=== PATIENT | female | born 1960 | race Caucasian/White ===

== ENCOUNTER 2020-10-12 21:44 | Emergency (ER) | payer SELFPAY ==
[~2020-10-12 21:44] MED LIST: ELAVIL50 MG PO; KEFLEX250 MG PO; NYSTATIN 30GM C30 GM TOP; PREDNISONE 10MG10 MG PO; TRAZODONE 100M100 MG PO; TRELEGY ELLIPT1 EACH PO; VENTOLIN HFA IN18 GM INH
[2020-10-12 22:03] LABS: BASOPHIL 0.4 % (0-2); EOSINOPHIL 1.4 % (0-5); HCT 42.4 % (37.0-47.0); HGB 14.3 g/dl (12.5-16.0); LYMPHOCYTE 37.7 % (15-48); MCH 29.9 pg (25.0-31.0); MCHC 33.7 g/dL (32.0-36.0); MCV 88.5 fL (78.0-100.0); MONOCYTE 7.1 % (0-12); MPV 9.4 fL (6.0-9.5); NRBC 0; PLT 303 K/uL (150-400); RBC 4.79 M/uL (4.20-5.40); RDW 13.2 % (11.5-14.0); WBC 12.3 K/uL (4.0-10.5)
[2020-10-12 22:15] LABS: INR 1.13 (0.9-1.2); PROTHROMBIN TIME 13.8 SECONDS (11.4-13.6)
[2020-10-12 22:22] LABS: IRON % SATURATION 27.3 %SAT (20-50)
[2020-10-12 22:30] LABS: D-DIMER 6.09 ug/mLFEU (0.00-0.41)
[2020-10-12 22:33] LABS: ALBUMIN 3.6 g/dL (3.4-5.0); BILIRUBIN - TOTAL 0.4 mg/dL (0.2-1.0); BUN/CREAT RATIO (CALC) 21.2 RATIO; CREATININE 0.8 mg/dL (0.51-0.95); GLOBULIN (CALCULATION) 4.3 g/dL; MAGNESIUM 2.3 mg/dL (1.8-2.4); TOTAL PROTEIN 7.9 g/dL (6.4-8.2)
[2020-10-12 22:46] LABS: LACTIC ACID 2.3 mmol/L (0.4-1.9)
== END 2020-10-13 02:22 | disposition other institution (70) ==
LOC: FER 21:44
PROVIDERS: Emergency Medicine
DX: I26.99 Other pulmonary embolism without acute cor pulmonale (principal); J96.01 Acute respiratory failure with hypoxia; I51.89 Other ill-defined heart diseases; R22.42 Localized swelling, mass and lump, left lower limb; J44.9 Chronic obstructive pulmonary disease, unspecified; F17.210 Nicotine dependence, cigarettes, uncomplicated; Z20.822 Contact with and (suspected) exposure to COVID-19
CPT/HCPCS: 36415; 36600; 71275; 80053; 82728; 82803; 83540; 83550; 83605; 83615; 83735; 83880; 84145; 84484; 85025; 85379; 85610; 85730; 93005; J1650; J7030; Q9967; U0002

== ENCOUNTER 2021-08-04 04:55 | Emergency (ER) | payer SELFPAY ==
[2021-08-04 06:27] LABS: BILIRUBIN NEGATIVE (NEGATIVE); BLOOD NEGATIVE Ery/uL (NEGATIVE); CLARITY CLEAR (CLEAR); COLOR YELLOW (YELLOW); GLUCOSE (U) NORMAL (NORMAL); LEUKOCYTES NEGATIVE Leu/uL (NEGATIVE); NITRITE NEGATIVE (NEGATIVE); PROTEIN NEGATIVE (NEGATIVE); UROBILINOGEN 0.2 mg/dL (0.2-1.0)
[2021-08-04 06:42] LABS: BASOPHIL 0.7 % (0-2); EOSINOPHIL 1.6 % (0-5); HCT 39.8 % (37.0-47.0); HGB 13.3 g/dl (12.5-16.0); LYMPHOCYTE 28.1 % (15-48); MCH 29.6 pg (25.0-31.0); MCHC 33.4 g/dL (32.0-36.0); MCV 88.6 fL (78.0-100.0); MONOCYTE 7.3 % (0-12); MPV 9.1 fL (6.0-9.5); NEUTROPHIL 61.8 % (41-80); NRBC 0; PLT 285 K/uL (150-400); RBC 4.49 M/uL (4.20-5.40); RDW 13.5 % (11.5-14.0); WBC 11.9 K/uL (4.0-10.5)
[2021-08-04 06:48] LABS: CORONAVIRUS 2019 SARS-COV-2 NEGATIVE (NEGATIVE); INFLUENZA A NAA NEGATIVE (NEGATIVE)
[2021-08-04 07:01] LABS: BUN/CREAT RATIO (CALC) 20.3 RATIO; CREATININE 0.79 mg/dL (0.51-0.95); POTASSIUM 4.4 mmol/L (3.5-5.1)
[2021-08-04] MEDS ORDERED: METRONIDAZOLE500 MG PO (11:03)
[2021-08-04] MEDS ORDERED: CIPRO500 MG PO (11:03)
[2021-08-04] MEDS ORDERED: FIORICET1 EACH PO (11:03)
== END 2021-08-04 11:40 | disposition home or self-care (01) ==
LOC: FER 04:55
PROVIDERS: Internal Medicine
DX: K57.32 Diverticulitis of large intestine without perforation or abscess without bleeding (principal); G43.909 Migraine, unspecified, not intractable, without status migrainosus; F17.210 Nicotine dependence, cigarettes, uncomplicated; Z20.822 Contact with and (suspected) exposure to COVID-19; Z99.81 Dependence on supplemental oxygen
CPT/HCPCS: 36415; 70450; 71260; 80048; 81003; 84145; 85025; 96372; J1170; J3030; Q9967; U0002

== ENCOUNTER 2021-08-20 09:45 | Emergency (ER) | payer SELFPAY ==
[~2021-08-20 09:45] MED LIST changes: +CIPRO500 MG PO; +FIORICET1 EACH PO; +METRONIDAZOLE500 MG PO
[2021-08-20 10:12] LABS: BASOPHIL 0.6 % (0-2); EOSINOPHIL 2.2 % (0-5); HGB 13.6 g/dl (12.5-16.0); LYMPHOCYTE 35.4 % (15-48); MCH 29.7 pg (25.0-31.0); MCHC 33.2 g/dL (32.0-36.0); MCV 89.5 fL (78.0-100.0); MONOCYTE 6.9 % (0-12); MPV 8.9 fL (6.0-9.5); NEUTROPHIL 54.7 % (41-80); NRBC 0; PLT 316 K/uL (150-400); RBC 4.58 M/uL (4.20-5.40); RDW 13.3 % (11.5-14.0); WBC 6.4 K/uL (4.0-10.5)
[2021-08-20 10:48] LABS: ALBUMIN 3.3 g/dL (3.4-5.0); ALKALINE PHOSHATASE 69 U/L (46-116); ALT 7 U/L (14-59); AST 13 U/L (15-37); BILIRUBIN - TOTAL 0.2 mg/dL (0.2-1.0); BUN 10 mg/dL (7-18); CHLORIDE 104 mmol/L (98-107); CO2 (BICARBONATE) 24 mmol/L (21-32); CREATININE 0.04 mg/dL (0.51-0.95); GLOBULIN (CALCULATION) 4.3 g/dL; GLUCOSE 93 mg/dL (74-106); LIPASE <10 U/L (73-393); POTASSIUM 4.3 mmol/L (3.5-5.1); TOTAL PROTEIN 7.6 g/dL (6.4-8.2)
[2021-08-20 10:54] LABS: BILIRUBIN NEGATIVE (NEGATIVE); BLOOD 2+ Ery/uL (NEGATIVE); GLUCOSE (U) TRACE mg/dL (NORMAL); LEUKOCYTES 2+ Leu/uL (NEGATIVE); NITRITE POSITIVE (NEGATIVE); PROTEIN TRACE (LOW) mg/dL (NEGATIVE)
[2021-08-20 10:55] LABS: COLOR AMBER (YELLOW)
[2021-08-20 10:56] LABS: CLARITY HAZY (CLEAR)
[2021-08-20 10:58] LABS: BACTERIA 3+; YEAST PRESENT
[2021-08-20] MEDS ORDERED: PYRIDIUM200 M1 PO (14:58)
== END 2021-08-20 15:20 | disposition home or self-care (01) ==
LOC: FER 09:45
PROVIDERS: Emergency Medicine
DX: N39.0 Urinary tract infection, site not specified (principal); F17.210 Nicotine dependence, cigarettes, uncomplicated; J44.9 Chronic obstructive pulmonary disease, unspecified; Z88.8 Allergy status to other drugs, medicaments and biological substances
CPT/HCPCS: 36415; 80053; 81001; 83690; 85025; J1170; J2405; Q9967